=== PATIENT | male | born 1955 | race Caucasian/White ===

== ENCOUNTER 2021-05-15 15:01 | Emergency (ER) | payer OTHER ==
[2021-05-15 17:17] LABS: HEMOGLOBIN 15.6 gm/dl (14.0-17.5); RED BLOOD COUNT 5.26 M/UL (4.20-5.50); WHITE BLOOD COUNT 6.5 K/UL (4.5-11.0)
[2021-05-15 17:34] LABS: BUN/CREATININE RATIO 13 (0-10)
== END 2021-05-15 20:25 | disposition home or self-care (01) ==
LOC: ER1 15:01
DX: N32.89 Other specified disorders of bladder (principal); E78.5 Hyperlipidemia, unspecified; I10 Essential (primary) hypertension
CPT/HCPCS: 80053; 81001; 83690; 85025; 99284